=== PATIENT | male | born 1975 | race American Indian/Alaskan Native ===

== ENCOUNTER 2017-06-12 08:14 | Outpatient (CLI) | payer OTHER ==
--- NOTE | 2017-06-12 13:34 | XRay Report ---
RIGHT KNEE, 3 views: History: Right knee pain. The bony architecture is intact without evidence of fracture or dislocation. No significant soft tissue abnormality is seen. IMPRESSION: Unremarkable right knee.
== END 2017-06-12 08:15 | disposition home or self-care (01) ==
LOC: SPVIMAG 08:14
PROVIDERS: ATTEND Orthopaedic Surgery
DX: M25.561 Pain in right knee (principal)